=== PATIENT | female | born 1965 | race Caucasian/White ===

== ENCOUNTER 2018-05-05 12:08 | Emergency (ER) | payer BC ==
[2018-05-05 12:13] VITALS: TEMP 98.7
[2018-05-05] MEDS ORDERED: NITROGLYCERIN OINT 1 INCH/GM PACKET TOPICAL STA (12:21)
[2018-05-05] MEDS ORDERED: ASPIRIN 81 MG PO STA (12:21)
--- NOTE | 2018-05-05 12:23 | ED ---
General Adult HPI - General Chief complaint: Chest Pain Stated complaint: Chest Pain Time Seen by Provider: 05/05/18 12:10 Source: patient, RN notes reviewed Mode of arrival: wheelchair Limitations: no limitations - History of Present Illness Initial comments: This is a 53-year-old female with past medical history significant for smoking and a family history for heart disease. Patient comes in today complaining of right-sided chest pain that radiates up to the right shoulder into her jaw per patient states she's also very short since this started. Patient states this began last night and it's a pressure sensation. Patient states his been constant all night long she did take aspirin didn't seem to help. Patient denies any recent fever chills or cough per patient denies abdominal pain patient denies any vomiting or diarrhea. Patient denies any nausea. Patient denies any pain in the back or down the arms. Patient denies any headache patient denies numbness or weakness. Patient denies any lightheadedness dizziness or near syncopal episode. Patient denies any swelling to the legs or calf tenderness. - Related Data Home Medications Medication Instructions Recorded Confirmed Ibuprofen [Motrin Ib] 400 mg PO Q6H PRN 05/05/18 05/05/18 Allergies Allergy/AdvReac Type Severity Reaction Status Date / Time No Known Allergies Allergy Verified 05/05/18 13:34 Review of Systems ROS Statement: Those systems with pertinent positive or pertinent negative responses have been documented in the HPI. ROS Other: All systems not noted in ROS Statement are negative. Past Medical History Additional Past Medical History / Comment(s): ra History of Any Multi-Drug Resistant Organisms: None Reported Past Surgical History: Section Additional Past Surgical History / Comment(s): bladder sling Past Psychological History: No Psychological Hx Reported Smoking Status: Current every day smoker Past Alcohol Use History: Daily Past Drug Use History: None Reported General Exam - General Exam Comments Initial Comments: GENERAL: Patient is well-developed and well-nourished. Patient is nontoxic and well- hydrated and is in mild distress. ENT: Neck is soft and supple. No significant lymphadenopathy is noted. Oropharynx is clear. Moist mucous membranes. Neck has full range of motion without eliciting any pain. EYES: The sclera were anicteric and conjunctiva were pink and moist. Extraocular movements were intact and pupils were equal round and reactive to light. Eyelids were unremarkable. PULMONARY: Unlabored respirations. Good breath sounds bilaterally. No audible rales rhonchi or wheezing was noted. CARDIOVASCULAR: There is a regular rate and rhythm without any murmurs gallops or rubs. ABDOMEN: Soft and nontender with normal bowel sounds. No palpable organomegaly was noted. There is no palpable pulsatile mass. SKIN: Skin is clear with no lesions or rashes and otherwise unremarkable. NEUROLOGIC: Patient is alert and oriented x3. Cranial nerves II through XII are grossly intact. Motor and sensory are also intact. Normal speech, volume and content. Symmetrical smile. MUSCULOSKELETAL: Normal extremities with adequate strength and full range of motion. No lower extremity swelling or edema. No calf tenderness. LYMPHATICS: No significant lymphadenopathy is noted PSYCHIATRIC: Normal psychiatric evaluation. Limitations: no limitations Course Vital Signs 05/05/18 05/05/18 12:09 14:40 Temperature 98.7 F Pulse Rate 98 92 Respiratory 18 18 Rate Blood Pressure 174/92 122/91 O2 Sat by Pulse 99 97 Oximetry Medical Decision Making - Medical Decision Making EKG shows normal sinus rhythm at 93 bpm NE interval 248 QRS is 92 QT interval 370 QTC is 469. Patient's EKG shows no ST segment elevation or depression or T wave abnormalities are noted. I discussed smoking cessation for greater than 3 minutes. The risks of smoking were discussed with the patient including but not limited to risks of cancer, stroke, coronary artery disease and COPD. Also discussed with the patient were multiple methods of quitting smoking. Lastly we discussed the financial costs of smoking. Chest x-ray shows no acute abnormality. CT of the chest shows no PE however some mediastinal adenopathy I will back into his pain to the patient she continued to have chest pain and Nitropaste did not help her. I spoke with Dr. Harp he agreed to admit the patient admitted the patient remaining orders I consult cardiology. I started the patient on heparin I continue the heparin and aspirin and Nitropaste on the floor - Lab Data Result diagrams: 05/05/18 12:55 05/05/18 12:55 Lab Results 05/05/18 05/05/18 05/05/18 Range/Units 12:55 12:55 12:55 WBC (3.8-10.6) k/uL RBC (3.80-5.40) m/uL Hgb (11.4-16.0) gm/dL Hct (34.0-46.0) % MCV (80.0-100.0) fL MCH (25.0-35.0) pg MCHC (31.0-37.0) g/dL RDW (11.5-15.5) % Plt Count (150-450) k/uL Neutrophils % % Lymphocytes % % Monocytes % % Eosinophils % % Basophils % % Neutrophils # (1.3-7.7) k/uL Lymphocytes # (1.0-4.8) k/uL Monocytes # (0-1.0) k/uL Eosinophils # (0-0.7) k/uL Basophils # (0-0.2) k/uL PT (9.0-12.0) sec INR (<1.2) APTT (22.0-30.0) sec D-Dimer 0.86 H (<0.60) mg/L FEU Sodium 142 (137-145) mmol/L Potassium 4.3 (3.5-5.1) mmol/L Chloride 107 (98-107) mmol/L Carbon Dioxide 26 (22-30) mmol/L Anion Gap 9 mmol/L BUN 8 (7-17) mg/dL Creatinine 0.58 (0.52-1.04) mg/dL Est GFR (CKD-EPI)AfAm >90 (>60 ml/min/1.73 sqM) Est GFR (CKD-EPI)NonAf >90 (>60 ml/min/1.73 sqM) Glucose 103 H (74-99) mg/dL Calcium 9.3 (8.4-10.2) mg/dL Magnesium 1.8 (1.6-2.3) mg/dL Total Bilirubin 0.6 (0.2-1.3) mg/dL AST 50 H (14-36) U/L ALT 62 H (9-52) U/L Alkaline Phosphatase 128 H (38-126) U/L Total Creatine Kinase 47 (30-135) U/L CK-MB (CK-2) 0.4 (0.0-2.4) ng/mL CK-MB (CK-2) Rel Index 0.9 Troponin I <0.012 (0.000-0.034) ng/mL Total Protein 7.7 (6.3-8.2) g/dL Albumin 4.0 (3.5-5.0) g/dL 05/05/18 05/05/18 Range/Units 12:55 12:55 WBC 10.0 (3.8-10.6) k/uL RBC 5.15 (3.80-5.40) m/uL Hgb 15.4 (11.4-16.0) gm/dL Hct 45.6 (34.0-46.0) % MCV 88.5 (80.0-100.0) fL MCH 30.0 (25.0-35.0) pg MCHC 33.9 (31.0-37.0) g/dL RDW 13.2 (11.5-15.5) % Plt Count 206 (150-450) k/uL Neutrophils % 65 % Lymphocytes % 25 % Monocytes % 6 % Eosinophils % 2 % Basophils % 0 % Neutrophils # 6.5 (1.3-7.7) k/uL Lymphocytes # 2.5 (1.0-4.8) k/uL Monocytes # 0.6 (0-1.0) k/uL Eosinophils # 0.2 (0-0.7) k/uL Basophils # 0.0 (0-0.2) k/uL PT 9.7 (9.0-12.0) sec INR 1.0 (<1.2) APTT 25.5 (22.0-30.0) sec D-Dimer (<0.60) mg/L FEU Sodium (137-145) mmol/L Potassium (3.5-5.1) mmol/L Chloride (98-107) mmol/L Carbon Dioxide (22-30) mmol/L Anion Gap mmol/L BUN (7-17) mg/dL Creatinine (0.52-1.04) mg/dL Est GFR (CKD-EPI)AfAm (>60 ml/min/1.73 sqM) Est GFR (CKD-EPI)NonAf (>60 ml/min/1.73 sqM) Glucose (74-99) mg/dL Calcium (8.4-10.2) mg/dL Magnesium (1.6-2.3) mg/dL Total Bilirubin (0.2-1.3) mg/dL AST (14-36) U/L ALT (9-52) U/L Alkaline Phosphatase (38-126) U/L Total Creatine Kinase (30-135) U/L CK-MB (CK-2) (0.0-2.4) ng/mL CK-MB (CK-2) Rel Index Troponin I (0.000-0.034) ng/mL Total Protein (6.3-8.2) g/dL Albumin (3.5-5.0) g/dL Critical Care Time Critical Care Time: Yes Total Critical Care Time: 35 Disposition Clinical Impression: Mediastinal adenopathy, Unstable angina pectoris Disposition: ADMITTED IP TO THIS HOSP Referrals: Nonstaff,Physician [REFERRING] - 1-2 days Time of Disposition: 15:17
--- NOTE | 2018-05-05 13:39 | XR ---
EXAMINATION TYPE: XR chest 2V DATE OF EXAM: 05/05/2018 COMPARISON: NONE HISTORY: Chest pain TECHNIQUE: Frontal and lateral views of the chest are obtained. FINDINGS: There is no focal air space opacity, pleural effusion, or pneumothorax seen. The cardiac silhouette size is upper limits of normal size. The osseous structures are intact. Minimal multilev el degenerative changes of the spine are noted. IMPRESSION: No acute cardiopulmonary process.
[2018-05-05 13:48] LABS: Basophils % (A) 0 %; Eosinophils # (A) 0.2 k/uL (0-0.7); Eosinophils % (A) 2 %; HCT 45.6 % (34.0-46.0); HGB 15.4 gm/dL (11.4-16.0); Lymphocytes # (A) 2.5 k/uL (1.0-4.8); Lymphocytes % (A) 25 %; MCHC 33.9 g/dL (31.0-37.0); MCV 88.5 fL (80.0-100.0); Mean Platelet Volume 7.2; Monocytes # (A) 0.6 k/uL (0-1.0); Monocytes % (A) 6 %; Neutrophils # (A) 6.5 k/uL (1.3-7.7); Neutrophils % (A) 65 %; Platelet Count 206 k/uL (150-450); RBC 5.15 m/uL (3.80-5.40); RDW 13.2 % (11.5-15.5)
[2018-05-05 13:52] LABS: Partial Thromboplastin Time 25.5 sec (22.0-30.0); Prothrombin Time 9.7 sec (9.0-12.0)
[2018-05-05 13:53] LABS: ALT 62 U/L (9-52); AST 50 U/L (14-36); Alkaline Phosphatase 128 U/L (38-126); Anion Gap 9 mmol/L; Blood Urea Nitrogen 8 mg/dL (7-17); Calcium 9.3 mg/dL (8.4-10.2); Carbon Dioxide 26 mmol/L (22-30); Chloride 107 mmol/L (98-107); Glucose 103 mg/dL (74-99); Magnesium 1.8 mg/dL (1.6-2.3); Potassium 4.3 mmol/L (3.5-5.1); Sodium 142 mmol/L (137-145); Total Bilirubin 0.6 mg/dL (0.2-1.3); Total Protein 7.7 g/dL (6.3-8.2)
[2018-05-05 13:55] LABS: Creatine Kinase 47 U/L (30-135)
[2018-05-05 14:08] LABS: Creatine Kinase MB 0.4 ng/mL (0.0-2.4); Troponin I <0.012 ng/mL (0.000-0.034)
--- NOTE | 2018-05-05 14:52 | CT ---
EXAMINATION TYPE: CT chest angio for PE DATE OF EXAM: 05/05/2018 COMPARISON: None HISTORY: Rt sided chest pain, SOB, elevated d dimer CT DLP: 311.3 mGycm Automated exposure control for dose reduction was used. CONTRAST: CT Chest for pulmonary embolism performed with with IV Contrast, patient injected with 62 mL of Isovu e 370. FINDINGS: There is enlarged paratracheal lymph node that measures 2 cm. There is enlarged anterior mediastinal lymph node that measures 2.2 x 1.2 cm. There are bilateral bronchial lymph nodes that measure up to 1 .5 cm. There are subcarinal lymph nodes that measure up to 2.8 x 1.3 cm. There is no pericardial effu ney. The lungs are clear of consolidation. There is no evidence of a pulmonary mass. There is normal contrast opacification of the pulmonary arteries. There are no filling defects. There is no pleural effusion. There is no pericardial effusion. There is spurring in the thoracic spine. IMPRESSION: No evidence of pulmonary embolism. Mediastinal and bronchial adenopathy. Adenopathy is nonspecific.
[2018-05-05] MEDS ORDERED: KETOROLAC 60 MG/2 ML VIAL IVP STA (15:13)
[2018-05-05] MEDS ORDERED: NITROGLYCERIN SL TABS 0.4 MG TAB SUBLINGUAL PRN (15:17)
[2018-05-05] MEDS ORDERED: HEPARIN SODIUM,PORCINE 5,000 UNIT/ML 1 ML VIAL IV ONE (15:19)
[2018-05-05] MEDS ORDERED: HEPARIN SOD,PORK IN 0.45% NACL 25,000 UNIT in 0.45% NACL 1 500ML.BAG IV SCH (15:30)
[2018-05-05] MEDS ORDERED: ALPRAZolam 0.25 MG TAB PO PRN (16:49)
[2018-05-05] MEDS ORDERED: TEMAZEPAM 15 MG CAP PO PRN (16:49)
[2018-05-05] MEDS ORDERED: HYDROmorphone 1 MG/ML 1 ML SYRINGE IVP PRN (16:53)
[2018-05-05] MEDS ORDERED: HYDROcodone/APAP 5-325MG 1 EACH TAB PO PRN (16:53)
[2018-05-05] MEDS ORDERED: NITROGLYCERIN OINT 1 INCH/GM PACKET TOPICAL SCH (18:00)
[2018-05-05 18:26] VITALS: BP 130/92; PULSE 87; RESP 20
[2018-05-05 18:44] LABS: Appearance,Urine Cloudy (Clear); Bilirubin,Urine Negative (Negative); Blood,Urine Negative (Negative); Color,Urine Light Yellow; Glucose,Urine (UA) Negative (Negative); Ketones,Urine Negative (Negative); Leukocyte Esterase,Urine Moderate (Negative); Mucus,Urine Rare /hpf; Nitrite,Urine Positive (Negative); Protein,Urine Negative (Negative); Specific Gravity,Urine 1.017 (1.001-1.035); Squamous Epithelial Cell,Urine 2 /hpf (0-4); Urobilinogen,Urine <2.0 mg/dL (<2.0); WBC,Urine 15 /hpf (0-5)
[2018-05-05 18:57] LABS: Amphetamine Screen,Urine Not Detected (NotDetected); Barbiturate Screen,Urine Not Detected (NotDetected); Benzodiazepines Screen,Urine Not Detected (NotDetected); Cocaine Screen,Urine Not Detected (NotDetected); Methadone Screen, Urine Not Detected (NotDetected); Opiate Screen,Urine Not Detected (NotDetected); Oxycodone Screen, Urine Not Detected (NotDetected); Phencyclidine Screen,Urine Not Detected (NotDetected); Tricyclic Antidepressant,Urine Not Detected (NotDetected); Urn Cannabinoid Scrn Detected (NotDetected)
--- NOTE | 2018-05-05 19:21 | HP ---
HISTORY AND PHYSICAL DATE OF SERVICE: 05/05/2018. CHIEF COMPLAINT: Chest pain. HISTORY OF PRESENT ILLNESS: This 53-year-old woman with a past history of multiple medical problems including bladder sling, history of section, history of nicotine dependence being followed by Dr. Barrera in the outpatient setting was complaining of chest pain. Initially the patient felt the pain in the lower part of the chest and epigastrium, subsequently went up to the throat and also patient had jaw pain. The pain also radiated to the back. There was some associated nausea and the persists throughout the nighttime. Currently the patient is complaining of pain 7 out of 10 in intensity. The aspirin did not help the pain. The patient came to [facility] and was admitted for further evaluation and treatment. Initial EKG showed no acute abnormality. The heart rate is around 93. Troponins were negative, but AST/ ALT was mildly elevated and a CT scan of the chest. The D-dimer is mildly elevated 0.86. A CT angio of the chest showed no evidence of pulmonary embolism, but evidence of mediastinal lymphadenopathy. There is no history of fever, rigors or chills. No history of headache, loss of consciousness, seizures. PAST MEDICAL HISTORY: History of section, history bladder sling. MEDICATIONS: Prior to admission include Motrin 400 mg p.r.n. ALLERGIES: None. FAMILY HISTORY: Family history reveals no history of strokes or heart disease in the family. SOCIAL HISTORY: History of smoking and daily alcohol. REVIEW OF SYSTEMS: ENT: No diminished vision. No diminished hearing. CARDIOVASCULAR: As mentioned. RESPIRATORY: As mentioned earlier. GI: As mentioned earlier. no dysuria. Nervous system: No numbness or weakness. Allergy/Immunology: No asthma or hayfever. Musculoskeletal as mentioned earlier. Hematology: No history of anemia. Endocrine: No history of diabetes or hypothyroidism. Constitutional: As mentioned earlier. Dermatology: Negative. Rheumatology: Negative. Psychiatry: As mentioned earlier. PHYSICAL EXAMINATION: Alert and oriented x3. The pulse is 98, blood pressure 174/92, respiration 18, temperature 98.7, pulse ox 98% on room air. HEENT: Conjunctivae normal. Oral mucosa moist. Neck is no jugular venous distention. No carotid brut. No lymph node enlargement. Cardiovascular system: S1, S2. No S3, no S4. RESPIRATORY: Breath sounds diminished in the bases. No rhonchi. No crackles. ABDOMEN: Soft, nontender. No mass palpable. LEGS: No edema. no swelling. NERVOUS SYSTEM: Higher functions as mentioned earlier. Moves all four extremities. No focal deficits. LYMPHATICS: No lymph nodes palpable in the neck or axilla. Skin: No ulcer, rash or bleeding. Joints: No active deforming arthropathy. LAB INVESTIGATIONS: At this time, CBC within normal limits. D-dimer is 0.86. AST/ALT noted. The glucose ASSESSMENT: 1. Chest pain for evaluation, possible unstable angina. 2. Rule out gastroesophageal reflux disease. 3. Increased AST/ALT with mild hepatitis. 4. Mediastinal lymphadenopathy and bronchial lymphadenopathy on the CT scan. 5. History of nicotine dependence. 6. History of section, bladder sling. RECOMMENDATIONS AND DISCUSSION: In this 53-year-old woman who presented with multiple complex medical issues, we will monitor the patient closely, continue the current medications, management and symptomatic treatment. Otherwise, at this time, I recommend rule out myocardial infarction, unstable angina protocol. Cardiology consultation. Otherwise, repeat labs. I would also recommend proton pump inhibitors. Prognosis guarded because of multiple complex medical issues. Further recommendations to follow. Repeat labs are also recommended. The patient also had a bronchial mediastinal lymphadenopathy on the CT scan, which will also require outpatient followup. The overall prognosis guarded. Discussed with the patient. Smoking cessation has been advised and further recommendations to follow. See orders for further details. MMODL / IJN: [id number] / MTDD
[2018-05-05] MEDS ORDERED: PANTOPRAZOLE 40 MG/10 ML VIAL IVP SCH (21:00)
[2018-05-06] MEDS ORDERED: ASPIRIN 325 MG TAB PO SCH (09:00)
[2018-05-06] MEDS ORDERED: NICOTINE 14MG/24HR PATCH TRANSDERM SCH (09:00)
== END 2018-05-05 18:36 | disposition other institution (70) ==
LOC: EC 12:08 → UNDOADMOB 15:18 → 3SCARD 15:18 → 1SOBS 16:35 → 3SCARD 16:35 → EC 18:36
DX: I20.0 Unstable angina (principal); R59.0 Localized enlarged lymph nodes; F17.200 Nicotine dependence, unspecified, uncomplicated; Z82.49 Family history of ischemic heart disease and other diseases of the circulatory system
CPT/HCPCS: 36415; 93005; 85379; 80053; 82550; 82553; 83735; 84484; 85025; 85610; 85730; 81001; 80306; 71046; 71275; 99291; 96365; 96366; 96375; 96376; 99406; J1644 ×2; J1885; Q9967